=== PATIENT | female | born 1990 | race Two or more races ===

== ENCOUNTER 2024-05-15 10:54 | Day surgery (SDC) | payer BC, OTHER ==
[~2024-05-15] VITALS: Ht 167.6 cm; Wt 93.0 kg
[2024-05-15] VITALS (9 sets, daily range): BP systolic 96–111; BP diastolic 53–71; PULSE 72–82; RESP 11–18; TEMP 98; O2SAT 95–99
[~2024-05-15 10:54] MED LIST: INSLISPI SC; LISI2.5T47 PO; METO25TA93 PO
[2024-05-15] MEDS ORDERED: LIDOCAINE 2%HCL (LOCAL ANESTH.) INJ 20ML MDV ONE ×2 (13:01→13:51)
[2024-05-15] MEDS ORDERED: IODIXANOL 320MG/ML 100ML BTL IV ONE (13:01)
[2024-05-15] MEDS ORDERED: HEPARIN SODIUM (PORCINE) 5000 UNITS/ML 1ML VIAL ONE (13:50)
[2024-05-15] MEDS ORDERED: ANGIOMAX 250 MG VIAL IV ONE (13:50)
[2024-05-15] MEDS ORDERED: VERAPAMIL 2.5MG/ML INJ 2ML VIAL IV ONE (13:51)
[2024-05-15] MEDS ORDERED: SODIUM CHL 0.9% 0 ML ONE (13:51)
[2024-05-15] MEDS ORDERED: fentaNYL CITRATE 100 MCG/2 ML VL ONE (13:51)
[2024-05-15] MEDS ORDERED: MIDAZOLAM HCL 2MG/2ML 2ml VIAL (1mg/ml) ONE (13:51)
[2024-05-15] MEDS ORDERED: HEPARIN IN NS 1000Units/500mL 1,500 ML ONE (13:51)
[2024-05-15] MEDS ORDERED: PHENYLEPHRINE HCL 10 MG/ML VL ONE (14:37)
[2024-05-15] MEDS ORDERED: HYDROcodone-ACET 5/325MG TAB ONE (15:46)
[2024-05-15] MEDS: HYDROcodone-ACET 5/325MG TAB PO ONE (15:50)
== END 2024-05-15 16:58 | disposition home or self-care (01) ==
LOC: CATH 10:54
PROVIDERS: ATTEND Internal Medicine
DX: I25.10 Atherosclerotic heart disease of native coronary artery without angina pectoris (principal)
CPT/HCPCS: 93458; C1769; C1887; C1894; J1644; J2250; J2371; J3010; Q9967; 99152